=== PATIENT | male | born 1950 | race Caucasian/White ===

== ENCOUNTER → 2017-03-24 | Outpatient (REF) | payer BC, MEDICARE ==
[~2017-03-24] MED LIST: ATOR80TA59 PO
== END ==
LOC: M LAB REF 14:01
PROVIDERS: ATTEND Physician Assistant Medical
DX: H92.11 Otorrhea, right ear (principal)

== ENCOUNTER → 2017-04-04 | Outpatient (REF) | payer MEDICARE ==
[2017-04-04 12:46] LABS: BASO % 0.4 % (0.0-1.0); EOS # 0.1 K/mm3 (0.0-0.50); EOS % 1.5 % (0.0-3.0); LARGE UNSTAINED CELL # 0.1 K/mm3 (0.0-0.4); LARGE UNSTAINED CELL % 1.3 % (0.0-4.0); LYMPH # 1.9 K/mm3 (1.5-4.5); LYMPH % 29.3 % (24.0-44.0); MEAN CORPUSCULAR HGB CONC 34.9 g/dl (32.0-36.5); MONO # 0.3 K/mm3 (0.0-0.8); MONO % 4.8 % (0.0-5.0); NEUTROPHILS % 62.8 % (36.0-66.0); PLATELET COUNT, AUTOMATED 189 k/mm3 (150-450); RED CELL DISTRIBUTION WIDTH 13.8 % (11.5-14.5); WHITE BLOOD COUNT 6.3 K/mm3 (4.0-10.0)
[2017-04-04 13:25] LABS: ALBUMIN 3.8 GM/DL (3.2-5.2); ALBUMIN/GLOBULIN RATIO 1.31 (1.00-1.93); ALKALINE PHOSPHATASE 97 U/L (45-117); ALT/SGPT 25 U/L (12-78); ANION GAP 9 MEQ/L (8-16); AST/SGOT 12 U/L (15-37); BILIRUBIN,TOTAL 0.7 MG/DL (0.2-1.0); BLOOD UREA NITROGEN 16 MG/DL (7-18); CALCIUM LEVEL 8.4 MG/DL (8.8-10.2); CARBON DIOXIDE LEVEL 27 MEQ/L (21-32); CHLORIDE LEVEL 104 MEQ/L (98-107); CHOLESTEROL LEVEL 226 MG/DL (<200); CREATININE FOR GFR 0.92 MG/DL (0.70-1.30); GLOMERULAR FILTRATION RATE > 60.0 (>49); GLUCOSE, FASTING 138 MG/DL (80-110); POTASSIUM SERUM 3.9 MEQ/L (3.5-5.1); SODIUM LEVEL 140 MEQ/L (136-145); TOTAL PROTEIN 6.7 GM/DL (6.4-8.2); TRIGLYCERIDES LEVEL 175 MG/DL (<150)
== END ==
LOC: M SFHCADAM 11:13
PROVIDERS: ATTEND Family Medicine
DX: Z00.00 Encounter for general adult medical examination without abnormal findings (principal); I25.810 Atherosclerosis of coronary artery bypass graft(s) without angina pectoris; R61 Generalized hyperhidrosis; Z72.0 Tobacco use; Z12.11 Encounter for screening for malignant neoplasm of colon; Z79.82 Long term (current) use of aspirin

== ENCOUNTER → 2017-04-04 | Outpatient (CLI) | payer MEDICARE ==
--- NOTE | 2017-04-04 12:11 | REP ---
Chest two views HISTORY: COPD Comparison: 11/03/2007 The lungs are clear. The heart is normal in size. The pulmonary vasculature is normal in appearance. The bony structure is intact. IMPRESSION: No acute disease. Signed by Homero Coulter MD 04/04/2017 12:02 P
== END ==
LOC: M ADAMS 11:29
PROVIDERS: ATTEND Family Medicine
DX: R61 Generalized hyperhidrosis (principal); I25.810 Atherosclerosis of coronary artery bypass graft(s) without angina pectoris; Z72.0 Tobacco use
CPT/HCPCS: 71020; 80053; 80061; 85025; 86580; G0463

== ENCOUNTER → 2017-04-21 | Outpatient (REF) | payer MEDICARE | LOC: M SFHCADAM 13:06 | PROVIDERS: ATTEND Family Medicine | DX: R73.9 Hyperglycemia, unspecified (principal) | CPT/HCPCS: 83036; G0463 ==

== ENCOUNTER 2017-05-18 06:55 | Outpatient (CLI) | payer MEDICARE ==
[~2017-05-18] VITALS: Ht 165.1 cm; Wt 72.6 kg
[2017-05-18] MEDS ORDERED: NS 1,000 ML IV SCH (07:15)
[2017-05-18] MEDS ORDERED: LIDOCAINE 2% INJ 100 MG/5 ML SDV (FOR ANES.) As Ordered ONE (08:34)
[2017-05-18] MEDS ORDERED: PROPOFOL 200 MG/20 ML VIAL As Ordered ONE (08:34)
--- NOTE | 2017-05-18 09:00 | ROOR ---
Patient Name: Manuel Ventura Procedure Date: 05/18/2017 8:22 AM Date of : 1950 Age: 66 Room: [facility] Gender: Male Note Status: Finalized Procedure: Colonoscopy Indications: Screening for colorectal malignant neoplasm Providers: Maulik Holt MD Referring MD: Lianna Patterson DO Requesting Provider: Medicines: Monitored Anesthesia Care Complications: No immediate complications. Procedure: Pre-Anesthesia Assessment: - Prior to the procedure, a History and Physical was performed, and patient medications and allergies were reviewed. The patient is competent. The risks and benefits of the procedure and the sedation options and risks were discussed with the patient. All questions were answered and informed consent was obtained. Patient identification and proposed procedure were verified by the physician, the nurse and the anesthesiologist in the endoscopy suite. Mental Status Examination: alert and oriented. Airway Examination: normal oropharyngeal airway and neck mobility. Respiratory Examination: clear to auscultation. CV Examination: normal. Prophylactic Antibiotics: The patient does not require prophylactic antibiotics. Prior Anticoagulants: The patient has taken no previous anticoagulant or antiplatelet agents. ASA Grade Assessment: III - A patient with severe systemic disease. After reviewing the risks and benefits, the patient was deemed in satisfactory condition to undergo the procedure. The anesthesia plan was to use monitored anesthesia care (MAC). Immediately prior to administration of medications, the patient was re-assessed for adequacy to receive sedatives. The heart rate, respiratory rate, oxygen saturations, blood pressure, adequacy of pulmonary ventilation, and response to care were monitored throughout the procedure. The physical status of the patient was re-assessed after the procedure. The Colonoscope was introduced through the anus and advanced to the cecum, identified by appendiceal orifice and ileocecal valve. The colonoscopy was performed without difficulty. The patient tolerated the procedure well. The quality of the bowel preparation was good. Findings: The perianal and digital rectal examinations were normal. A few small-mouthed diverticula were found in the sigmoid colon. A diminutive polyp was found in the transverse colon. The polyp was flat. The polyp was removed with a cold snare. Resection and retrieval were complete. Estimated blood loss was minimal. A diminutive polyp was found in the rectum. The polyp was flat. The polyp was removed with a jumbo cold forceps. Resection and retrieval were complete. Estimated blood loss was minimal. No additional abnormalities were found on retroflexion. Impression: - Diverticulosis in the sigmoid colon. - One diminutive polyp in the transverse colon, removed with a cold snare. Resected and retrieved. - One diminutive polyp in the rectum, removed with a jumbo cold forceps. Resected and retrieved. Recommendation: - Discharge patient to home (ambulatory). - Repeat colonoscopy in 5 years for surveillance based on pathology results. Maulik Holt MD Maulik Holt MD 05/18/2017 8:59:45 AM This report has been signed electronically. Number of Addenda: 0 Note Initiated On: 05/18/2017 8:22 AM Estimated Blood Loss: Estimated blood loss was minimal.
[2017-05-18 09:22] VITALS: BP 109/58
== END 2017-05-18 09:23 | disposition home or self-care (01) ==
LOC: M OPP 06:55
PROVIDERS: ATTEND Surgery
DX: Z12.11 Encounter for screening for malignant neoplasm of colon (principal); K63.5 Polyp of colon; K57.30 Diverticulosis of large intestine without perforation or abscess without bleeding; Z95.5 Presence of coronary angioplasty implant and graft; I25.2 Old myocardial infarction; E78.5 Hyperlipidemia, unspecified; F17.210 Nicotine dependence, cigarettes, uncomplicated; Z79.899 Other long term (current) drug therapy

== ENCOUNTER → 2017-09-02 | Outpatient (REF) | payer MEDICARE ==
[2017-09-02 13:37] LABS: ESTIMATED AVERAGE GLUCOSE 151 MG/DL (60-110); HEMOGLOBIN A1c 6.9 %
== END ==
LOC: M SFHCADAM 12:23
DX: R73.03 Prediabetes (principal)
CPT/HCPCS: 83036

== ENCOUNTER → 2017-09-12 | Outpatient (CLI) | payer MEDICARE | LOC: M RAD 08:53 | DX: Z12.2 Encounter for screening for malignant neoplasm of respiratory organs (principal); F17.210 Nicotine dependence, cigarettes, uncomplicated | CPT/HCPCS: G0297 ==

== ENCOUNTER → 2017-12-01 | Outpatient (CLI) | payer MEDICARE | LOC: M ADAMS 11:54 | DX: M19.011 Primary osteoarthritis, right shoulder (principal); M25.512 Pain in left shoulder; Z79.899 Other long term (current) drug therapy | CPT/HCPCS: 73030; 83036 ==

== ENCOUNTER → 2017-12-01 | Outpatient (REF) | payer MEDICARE ==
[2017-12-01 20:01] LABS: ESTIMATED AVERAGE GLUCOSE 126 MG/DL (60-110)
== END ==
LOC: M SFHCADAM 19:26
DX: E11.9 Type 2 diabetes mellitus without complications (principal)
CPT/HCPCS: 83036

== ENCOUNTER → 2018-03-31 | Outpatient (REF) | payer MEDICARE ==
[2018-03-31 14:58] LABS: CREATININE, URINE 43.2 MG/DL; MALB URINE SIEMENS 7.7 MG/L; MAU/CREAT RATIO 17.8 MCG/MG (0.0-30.0)
[2018-03-31 15:14] LABS: ESTIMATED AVERAGE GLUCOSE 108 MG/DL (60-110); HEMOGLOBIN A1c 5.4 %
== END ==
LOC: M SFHCADAM 12:09
DX: E11.9 Type 2 diabetes mellitus without complications (principal)
CPT/HCPCS: 83036

== ENCOUNTER → 2018-07-04 | Outpatient (REF) | payer MEDICARE ==
[2018-07-04 13:41] LABS: ESTIMATED AVERAGE GLUCOSE 123 MG/DL (60-110); HEMOGLOBIN A1c 5.9 %
== END ==
LOC: M SFHCADAM 10:41
DX: E11.9 Type 2 diabetes mellitus without complications (principal)
CPT/HCPCS: 83036

== ENCOUNTER → 2018-07-19 | Outpatient (CLI) | payer MEDICARE | LOC: M RAD 07:20 | DX: E04.1 Nontoxic single thyroid nodule (principal); R91.1 Solitary pulmonary nodule; E11.9 Type 2 diabetes mellitus without complications; I65.29 Occlusion and stenosis of unspecified carotid artery; I25.810 Atherosclerosis of coronary artery bypass graft(s) without angina pectoris | CPT/HCPCS: 76775 ==

== ENCOUNTER → 2018-12-06 | Outpatient (REF) | payer MEDICARE ==
[2018-12-06 22:06] LABS: HEMOGLOBIN A1c 6.5 %
== END ==
LOC: M SFHCADAM 11:44
PROVIDERS: ATTEND Family Medicine
DX: E11.9 Type 2 diabetes mellitus without complications (principal)

== ENCOUNTER → 2018-12-13 | Outpatient (REF) | payer MEDICARE ==
[2018-12-13 13:19] LABS: ALT/SGPT 36 U/L (12-78); BILIRUBIN,TOTAL 0.8 MG/DL (0.2-1.0); BLOOD UREA NITROGEN 19 MG/DL (7-18); CARBON DIOXIDE LEVEL 28 MEQ/L (21-32); CHLORIDE LEVEL 107 MEQ/L (98-107); CREATININE FOR GFR 0.92 MG/DL (0.70-1.30); GLOMERULAR FILTRATION RATE > 60.0 (>49); GLUCOSE, FASTING 184 MG/DL (70-100); POTASSIUM SERUM 4.1 MEQ/L (3.5-5.1); SODIUM LEVEL 139 MEQ/L (136-145); TOTAL PROTEIN 6.8 GM/DL (6.4-8.2)
[2018-12-13 14:02] LABS: MALB URINE SIEMENS 22.3 MG/L; MAU/CREAT RATIO 15.3 MCG/MG (0.0-30.0)
== END ==
LOC: M SFHCADAM 10:12
PROVIDERS: ATTEND Family Medicine
DX: E11.9 Type 2 diabetes mellitus without complications (principal); Z72.0 Tobacco use

== ENCOUNTER → 2019-03-08 | Outpatient (REF) | payer MEDICARE ==
[2019-03-08 20:00] LABS: HEMOGLOBIN A1c 6.7 %
== END ==
LOC: M SFHCADAM 14:28
PROVIDERS: ATTEND Family Medicine
DX: E11.9 Type 2 diabetes mellitus without complications (principal)

== ENCOUNTER → 2019-06-06 | Outpatient (CLI) | payer MEDICARE ==
--- NOTE | 2019-06-06 09:04 | REP ---
Clinical: Lung screening. History smoking. Comparison: 09/12/2017 Technique: Axial low-dose noncontrast images from the thoracic inlet to the upper abdomen using lung screening technique. Findings: The lung burleson are well-aerated minimal chronic changes at the right lower lung zone remains stable. No consolidation, significant nodule or mass lesion is appreciated. No pleural effusion/reaction or pneumothorax. Tracheobronchial tree is patent. Mediastinum demonstrates mild atherosclerotic changes of the coronary arteries without cardiomegaly. Impression: Lung-RADS category I. No nodule or suspicious abnormality. Stable chronic changes at the right lower lung zone. Electronically Signed by Uri Camarena MD 06/06/2019 08:55 A
== END ==
LOC: M RAD 08:06
PROVIDERS: ATTEND Family Medicine
DX: Z12.2 Encounter for screening for malignant neoplasm of respiratory organs (principal); F17.210 Nicotine dependence, cigarettes, uncomplicated

== ENCOUNTER → 2019-06-26 | Outpatient (REF) | payer MEDICARE ==
[2019-06-26 18:07] LABS: BASO % 0.3 % (0.0-1.0); EOS # 0.1 10^3/uL (0.0-0.5); EOS % 1.6 % (0.0-3.0); HEMATOCRIT 46.8 % (42.0-52.0); LYMPH # 2.1 10^3/uL (1.5-5.0); LYMPH % 30.8 % (24.0-44.0); MEAN CORPUSCULAR HEMOGLOBIN 31.4 pg (27.0-33.0); MEAN CORPUSCULAR HGB CONC 34.2 g/dl (32.0-36.5); MEAN CORPUSCULAR VOLUME 91.8 fl (80.0-96.0); MONO # 0.5 10^3/uL (0.0-0.8); MONO % 7.5 % (0.0-5.0); NEUTROPHILS # 4.1 10^3/uL (1.5-8.5); NEUTROPHILS % 59.2 % (36.0-66.0); PLATELET COUNT, AUTOMATED 153 10^3/uL (150-450); WHITE BLOOD COUNT 6.8 10^3/uL (4.0-10.0)
[2019-06-26 18:23] LABS: HEMOGLOBIN A1c 6.7 %
[2019-06-26 18:35] LABS: ALBUMIN 3.6 GM/DL (3.2-5.2); ALT/SGPT 41 U/L (12-78); BILIRUBIN,TOTAL 0.5 MG/DL (0.2-1.0); BLOOD UREA NITROGEN 21 MG/DL (7-18); CALCIUM LEVEL 8.8 MG/DL (8.8-10.2); CARBON DIOXIDE LEVEL 31 MEQ/L (21-32); CHLORIDE LEVEL 105 MEQ/L (98-107); CHOLESTEROL LEVEL 120 MG/DL (<200); CHOLESTEROL RISK RATIO 4.285 (<5); CREATININE FOR GFR 1.08 MG/DL (0.70-1.30); FREE T4 0.95 NG/DL (0.76-1.46); GLOMERULAR FILTRATION RATE > 60.0 (>49); GLUCOSE, FASTING 119 MG/DL (70-100); HDL CHOLESTEROL 28 MG/DL (>40); LDL CHOLESTEROL 32 MG/DL (<100); NON-HDL-C 92 MG/DL; POTASSIUM SERUM 4.5 MEQ/L (3.5-5.1); SODIUM LEVEL 142 MEQ/L (136-145); TOTAL PROTEIN 6.4 GM/DL (6.4-8.2); TRIGLYCERIDES LEVEL 300 MG/DL (<150)
== END ==
LOC: M SFHCADAM 14:41
PROVIDERS: ATTEND Family Medicine
DX: I25.810 Atherosclerosis of coronary artery bypass graft(s) without angina pectoris (principal); E11.9 Type 2 diabetes mellitus without complications; E04.1 Nontoxic single thyroid nodule

== ENCOUNTER → 2020-01-28 | Outpatient (CLI) | payer MEDICARE ==
--- NOTE | 2020-01-29 05:02 | REP ---
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 Multiple surgeries to the left ear. Rule out cholesteatoma. Comparison CT study is from 04/07/2005. CT FINDINGS: Thin-section imaging shows no evidence of intraorbital abnormality. The visualized intracranial structures are unremarkable. The internal and external auditory canals are normal and symmetric. On the right, there is thickening of the tympanic membrane and some soft tissue density is seen along the middle ear ossicles. I cannot exclude an early cholesteatoma. No bony erosive change is seen. Vestibular and cochlear apparatus on the right are unremarkable. There is filling of multiple mastoid air cells on the right, consistent with mastoiditis. On the left, mastoid air cells are fluid filled and post mastoidectomy changes are again noted. The remaining mastoid air cells are aerated, however. There is a small quantity of soft tissue density in the mastoid attic, and there is thickening of the tympanic membrane with slight retraction. No bony erosive change is seen in the scutum. Vestibular and cochlear apparatus are intact. There are osteoarthritic changes in the temporomandibular joints bilaterally. There is an extensive subcortical cyst in the condylar head on the left with spur formation and some periarticular soft tissue calcification. These findings are more pronounced. IMPRESSION: There is soft tissue density material in the middle ear cavities bilaterally partially surrounding the middle ear ossicles. I cannot exclude cholesteatoma. Postsurgical changes are noted on the left, although mastoid air cells are improved. 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 Electronically Signed by Román Zheng MD 01/29/2020 11:15 A
== END ==
LOC: M RAD 15:07
PROVIDERS: ATTEND Otolaryngology
DX: H90.6 Mixed conductive and sensorineural hearing loss, bilateral (principal)

== ENCOUNTER → 2020-04-04 | Outpatient (CLI) | payer MEDICARE ==
--- NOTE | 2020-05-02 15:01 | REP ---
BILATERAL LOWER EXTREMITY ARTERIAL ULTRASOUND CLINICAL: History of atherosclerotic disease and symptoms related to claudication. TECHNIQUE: Real-time ford scale and color Doppler evaluation using linear high frequency transducer. FINDINGS: Extensive bilateral partially calcified atherosclerotic plaquing noted throughout the lower extremities. Right lower extremity ankle brachial indices (KARLOS) equals 0.98. The right lower extremity demonstrates extensive atherosclerotic changes. Doppler interrogation demonstrates triphasic and biphasic arterial wave patterns. There is evidence for moderate stenosis at the junction of the right common femoral artery and profunda artery. No further obvious discrete right lower extremity areas of stenosis or occlusion appreciated. Left lower extremity KARLOS equals 0.95. Doppler interrogation demonstrates biphasic wave patterns throughout the left lower extremity. There is moderate stenosis involving the left profunda artery, as well as mild stenosis through the proximal left superficial femoral artery. IMPRESSION: Extensive particularly calcified atherosclerotic changes noted bilaterally. Areas of stenosis as described above. Please refer to worksheet for velocities and further information. MTDD
== END ==
LOC: M RAD 11:14
PROVIDERS: ATTEND Physician Assistant
DX: I70.203 Unspecified atherosclerosis of native arteries of extremities, bilateral legs (principal)

== ENCOUNTER → 2020-11-28 | Outpatient (CLI) | payer MEDICARE ==
--- NOTE | 2020-11-28 12:58 | REP ---
INDICATION: CLAUDICATION COMPARISON: 04/04/2020 TECHNIQUE: Real time garland scale and color Doppler evaluation of the bilateral lower extremity arterial vasculature using linear high frequency transducer. FINDINGS: Garland scale and color images demonstrate moderate amounts of atheromatous plaquing with bilateral biphasic arterial wave patterns. Stable 2:1 stenosis at the right profundus is again noted. No further areas of stenosis noted bilaterally. Right KARLOS: 0.83; Left KARLOS: 0.83. Peak systolic velocities (cm/sec) Common femoral artery: Right 78; Left 92 Profunda femoris: Right 156; Left 65 SFA (proximal): Right 75; Left 64 SFA (mid): Right 78; Left 85 SFA (distal): Right 87; Left 75 Popliteal artery: Right 48; Left 40 LIZ (prox.): Right 61; Left 34 Tibioperoneal trunk: Right 56; Left 47 SUPERVISOR HANGING [employer]IMMING (prox.): Right 55; Left 47 SUPERVISOR HANGING [employer]IMMING (distal): Right 53; Left 60 LIZ (distal): Right 58; Left 38 IMPRESSION: Atheromatous changes and area of the stenosis in the right profundus essentially unchanged from prior examination. <Electronically signed by Uri Camarena > 11/28/20 [id number]
== END ==
LOC: M RAD 11:26
PROVIDERS: ATTEND Surgery Vascular Surgery
DX: I70.203 Unspecified atherosclerosis of native arteries of extremities, bilateral legs (principal); I77.1 Stricture of artery

== ENCOUNTER → 2021-01-13 | Outpatient (CLI) | payer MEDICARE ==
--- NOTE | 2021-01-13 12:50 | REP ---
INDICATION: NICOTINE DEPEND. COMPARISON: 06/06/2019 the latest prior also low-dose screening CT TECHNIQUE: Axial noncontrast images from the thoracic inlet to the upper abdomen using low-dose lung screening technique (LDCT). As per the protocol only lung window images were sent to the read station for interpretation. FINDINGS: No new abnormal nodules, masses, or opacities have developed. There is mild cylindrical bronchiectasis. The imaged upper abdomen and imaged osseous structures are grossly unchanged. The mediastinum and pulmonary leland are grossly unchanged. There are no pleural or pericardial effusions. IMPRESSION: Unchanged lung rads category [address] Yearly [address]s screening of the lungs is advised as per the revised Fleischner society criteria. <Electronically signed by Miguel Cochran > 01/13/21 [id number]
== END ==
LOC: M RAD 09:29
PROVIDERS: ATTEND Physician Assistant
DX: Z12.2 Encounter for screening for malignant neoplasm of respiratory organs (principal); F17.210 Nicotine dependence, cigarettes, uncomplicated; J47.9 Bronchiectasis, uncomplicated

== ENCOUNTER → 2022-02-09 | Outpatient (CLI) | payer MEDICARE | LOC: M RAD 09:50 | PROVIDERS: ATTEND Family Medicine | DX: Z12.2 Encounter for screening for malignant neoplasm of respiratory organs (principal); F17.210 Nicotine dependence, cigarettes, uncomplicated ==

== ENCOUNTER → 2022-04-11 | Outpatient (CLI) | payer MEDICARE ==
[~2022-04-11] MED LIST changes: +ASPI1TAB23 PO; +METF500T13 PO
== END ==
LOC: M LABSMTC 09:57
PROVIDERS: ATTEND Anesthesiology
DX: Z01.812 Encounter for preprocedural laboratory examination (principal); Z20.822 Contact with and (suspected) exposure to COVID-19

== ENCOUNTER 2022-04-14 06:43 | Day surgery (SDC) | payer MEDICARE ==
[~2022-04-14] VITALS: Ht 165.1 cm; Wt 63.5 kg
[~2022-04-14 06:43] MED LIST changes: +NS 1,000 ML IV ONE
[2022-04-14] MEDS ORDERED: propofoL 200 MG/20 ML VIAL As Ordered ONE ×2 (07:05→08:23)
[2022-04-14] MEDS ORDERED: ePHEDrine SULFATE 25 MG/5 ML(5MG/ML) SYRINGE As Ordered ONE (07:53)
[2022-04-14 08:39] VITALS: BP 112/57
== END 2022-04-14 09:06 | disposition home or self-care (01) ==
LOC: M OPP 06:43
PROVIDERS: ATTEND Surgery
DX: Z12.11 Encounter for screening for malignant neoplasm of colon (principal); Z86.010 Personal history of colon polyps; K63.5 Polyp of colon; K57.30 Diverticulosis of large intestine without perforation or abscess without bleeding; K64.9 Unspecified hemorrhoids; Z79.02 Long term (current) use of antithrombotics/antiplatelets; Z79.82 Long term (current) use of aspirin; Z79.84 Long term (current) use of oral hypoglycemic drugs; I25.2 Old myocardial infarction; E11.9 Type 2 diabetes mellitus without complications; F17.200 Nicotine dependence, unspecified, uncomplicated

== ENCOUNTER → 2022-06-03 | Outpatient (REF) | payer MEDICARE ==
[~2022-06-03] MED LIST changes: -NS 1,000 ML IV ONE
== END ==
LOC: M LAB REF 14:14
PROVIDERS: ATTEND Physician Assistant Medical
DX: H92.13 Otorrhea, bilateral (principal)

== ENCOUNTER → 2025-02-19 | Outpatient (CLI) | payer MEDICARE | LOC: M EKG 11:46 | PROVIDERS: ATTEND Internal Medicine Cardiovascular Disease | DX: I44.0 Atrioventricular block, first degree (principal); I49.40 Unspecified premature depolarization ==

== ENCOUNTER → 2025-05-03 | Outpatient (CLI) | payer MEDICARE | LOC: M PLAIMG 07:45 | PROVIDERS: ATTEND Internal Medicine Cardiovascular Disease | DX: I08.9 Rheumatic multiple valve disease, unspecified (principal); R94.31 Abnormal electrocardiogram [ECG] [EKG]; R01.1 Cardiac murmur, unspecified; I25.10 Atherosclerotic heart disease of native coronary artery without angina pectoris ==

== ENCOUNTER → 2025-06-18 | Outpatient (CLI) | payer MEDICARE | LOC: M CARPUL 08:22 | PROVIDERS: ATTEND Internal Medicine Cardiovascular Disease | DX: I25.10 Atherosclerotic heart disease of native coronary artery without angina pectoris (principal); R06.02 Shortness of breath; I73.9 Peripheral vascular disease, unspecified ==